=== PATIENT | female | born 1940 | race Caucasian/White ===

== ENCOUNTER 2019-08-24 17:03 | Emergency (ER) | payer MEDICARE, OTHER ==
--- NOTE | 2019-08-24 17:20 | EDM.PDOC ---
ED HPI GENERAL MEDICAL PROBLEM - General Chief Complaint: General Stated Complaint: Weakness and confusion Time Seen by Provider: 08/24/19 17:20 - History of Present Illness INITIAL COMMENTS - FREE TEXT/NARRATIVE: PT has been out walking this afternoon and became weak and nauseated, pt brought in by ems. Onset: Today - Related Data Allergies Allergy/AdvReac Type Severity Reaction Status Date / Time No Known Allergies Allergy Verified 08/24/19 17:18 Home Meds: Home Meds Aspirin 81 mg PO DAILY 08/24/19 [History] Melatonin 3 mg PO BEDTIME PRN 08/24/19 [History] ED ROS GENERAL - Review of Systems Review Of Systems: See Below Constitutional: Reports: Weakness HEENT: Reports: No Symptoms Respiratory: Reports: No Symptoms Cardiovascular: Reports: No Symptoms Endocrine: Reports: No Symptoms GI/Abdominal: Reports: Nausea : Reports: No Symptoms Musculoskeletal: Reports: No Symptoms Skin: Reports: No Symptoms Neurological: Reports: No Symptoms Psychiatric: Reports: No Symptoms Hematologic/Lymphatic: Reports: No Symptoms Immunologic: Reports: No Symptoms ED EXAM, GENERAL - Physical Exam Exam: See Below Free Text/Narrative:: Pt presents with c/o weakness and nausea, after talking with pt appeared to have some confusion. UA negative, head ct negative, uds negative, discussed with family states pt rasmussen had some confusion and more frequent episodes of in the past few months. General Appearance: Alert Eye Exam: Bilateral Eye: PERRL Ears: Normal External Exam, Normal Canal, Hearing Grossly Normal, Normal TMs Nose: Normal Inspection Throat/Mouth: Normal Inspection, Normal Oropharynx Head: Atraumatic, Normocephalic Neck: Normal Inspection Respiratory/Chest: No Respiratory Distress, Lungs Clear, Normal Breath Sounds, No Accessory Muscle Use, Chest Non-Tender Cardiovascular: Normal Peripheral Pulses, Regular Rate, Rhythm, No Edema, No Gallop, No JVD, No Murmur, No Rub GI/Abdominal: Normal Bowel Sounds, Soft, Non-Tender, No Organomegaly, No Distention, No Abnormal Bruit, No Mass, Pelvis Stable Extremities: Normal Inspection, Normal Range of Motion, Non-Tender, No Pedal Edema, Normal Capillary Refill Neurological: Alert Skin Exam: Warm, Dry, Intact Course - Vital Signs Last Recorded V/S: Last Vital Signs Temp 36.0 C 08/24/19 17:04 Pulse 74 08/24/19 18:35 Resp 16 10/25/19 18:35 BP 154/82 H 08/24/19 18:35 Pulse Ox 100 08/24/19 18:35 - Orders/Labs/Meds Labs: Laboratory Tests 08/24/19 08/24/19 08/24/19 Range/Units 15:36 17:36 17:36 WBC 6.6 (4.0-10.0) x10^3/uL RBC 4.03 (4.00-5.50) x10^6/uL Hgb 13.0 (12.0-16.0) g/dL Hct 38.1 (33.0-47.0) % MCV 94.5 H (78.0-93.0) fL MCH 32.3 H (26.0-32.0) pg MCHC 34.1 (32.0-36.0) g/dL RDW Coeff of [place] 12.2 (10.0-15.0) % Plt Count 281 (130-400) x10^3/uL Neut % (Auto) 55.6 (50.0-80.0) % Lymph % (Auto) 34.5 (25.0-50.0) % [place] % (Auto) 7.6 (2.0-11.0) % Eos % (Auto) 2.0 (0.0-4.0) % Baso % (Auto) 0.3 (0.2-1.2) % Sodium 144 (69-191) mmol/L Potassium 3.6 (1.5-9.9) mmol/L Chloride 104 (54-184) mmol/L Carbon Dioxide 23 (21-32) mmol/L Anion Gap 20.6 H (10-20) mmol/L BUN 19 H (7-18) mg/dL Creatinine 0.7 (0.55-1.02) mg/dL Est Cr Clr Drug Dosing TNP Estimated GFR (MDRD) > 60 Glucose 124 H (74-106) mg/dL Calcium 8.6 (8.5-10.1) mg/dL TSH, Ultra Sensitive 1.497 (0.358-3.74) uIU/mL Urine Color (YELLOW) Urine Appearance (CLEAR) Urine pH (5.0-8.0) Ur Specific [place] Urine Protein (NEGATIVE) mg/dL Urine Glucose (UA) (NEGATIVE) mg/dL Urine Ketones (NEGATIVE) mg/dL Urine Occult Blood (NEGATIVE) Urine Nitrite (NEGATIVE) Urine Bilirubin (NEGATIVE) Urine Urobilinogen (0.2) EU/dL Ur Leukocyte Esterase (NEGATIVE) Urine RBC (NOT SEEN) /HPF Urine WBC (NOT SEEN) /HPF Ur Squamous Epith Cells (NEGATIVE) /HPF Urine Bacteria (NEGATIVE) /HPF Urine Mucus (NEGATIVE) /LPF Urine Opiates Screen (NEGATIVE) Ur Buprenorphine Scrn (NEGATIVE) Ur Oxycodone Screen (NEGATIVE) Ur EDDP (Meth Metab) (NEGATIVE) Urine Methadone Screen (NEGATIVE) Ur Barbituates Screen (NEGATIVE) Ur Tricyclics Screen (NEGATIVE) Ur Phencyclidine Scrn (NEGATIVE) Ur Amphetamines Screen (NEGATIVE) U Methamphetamines Scrn (NEGATIVE) Urine MDMA Screen (NEGATIVE) U Benzodiazepines Scrn (NEGATIVE) Urine Cocaine Screen (NEGATIVE) U Marijuana (THC) Screen (NEGATIVE) 08/24/19 08/24/19 Range/Units 17:43 17:43 WBC (4.0-10.0) x10^3/uL RBC (4.00-5.50) x10^6/uL Hgb (12.0-16.0) g/dL Hct (33.0-47.0) % MCV (78.0-93.0) fL MCH (26.0-32.0) pg MCHC (32.0-36.0) g/dL RDW Coeff of [place] (10.0-15.0) % Plt Count (130-400) x10^3/uL Neut % (Auto) (50.0-80.0) % Lymph % (Auto) (25.0-50.0) % [place] % (Auto) (2.0-11.0) % Eos % (Auto) (0.0-4.0) % Baso % (Auto) (0.2-1.2) % Sodium (69-191) mmol/L Potassium (1.5-9.9) mmol/L Chloride (54-184) mmol/L Carbon Dioxide (21-32) mmol/L Anion Gap (10-20) mmol/L BUN (7-18) mg/dL Creatinine (0.55-1.02) mg/dL Est Cr Clr Drug Dosing Estimated GFR (MDRD) Glucose (74-106) mg/dL Calcium (8.5-10.1) mg/dL TSH, Ultra Sensitive (0.358-3.74) uIU/mL Urine Color Yellow (YELLOW) Urine Appearance Slightly cloudy H (CLEAR) Urine pH 7.5 (5.0-8.0) Ur Specific [place] 1.015 Urine Protein Negative (NEGATIVE) mg/dL Urine Glucose (UA) Negative (NEGATIVE) mg/dL Urine Ketones Trace H (NEGATIVE) mg/dL Urine Occult Blood Trace-intact H (NEGATIVE) Urine Nitrite Negative (NEGATIVE) Urine Bilirubin Negative (NEGATIVE) Urine Urobilinogen 0.2 (0.2) EU/dL Ur Leukocyte Esterase Negative (NEGATIVE) Urine RBC 0-5 (NOT SEEN) /HPF Urine WBC Not seen (NOT SEEN) /HPF Ur Squamous Epith Cells Rare (NEGATIVE) /HPF Urine Bacteria Rare (NEGATIVE) /HPF Urine Mucus Not seen (NEGATIVE) /LPF Urine Opiates Screen Negative (NEGATIVE) Ur Buprenorphine Scrn Negative (NEGATIVE) Ur Oxycodone Screen Negative (NEGATIVE) Ur EDDP (Meth Metab) Negative (NEGATIVE) Urine Methadone Screen Negative (NEGATIVE) Ur Barbituates Screen Negative (NEGATIVE) Ur Tricyclics Screen Negative (NEGATIVE) Ur Phencyclidine Scrn Negative (NEGATIVE) Ur Amphetamines Screen Negative (NEGATIVE) U Methamphetamines Scrn Negative (NEGATIVE) Urine MDMA Screen Negative (NEGATIVE) U Benzodiazepines Scrn Negative (NEGATIVE) Urine Cocaine Screen Negative (NEGATIVE) U Marijuana (THC) Screen Negative (NEGATIVE) Meds: Medications Discontinued Medications Generic Name Dose Route Start Last Admin Trade Name Freq PRN Reason Stop Dose Admin Lactated Ringer's 1,000 mls @ 999 drops/min 08/24/19 17:26 08/24/19 17:31 Ringers, Lactated IV 08/24/19 17:41 999 drops/min ONETIME ONE Administration Departure - Departure Time of Disposition: 19:37 Disposition: Home, Self-Care 01 Clinical Impression: Confusion - Discharge Information Forms: ED Department Discharge Additional Instructions: Follow up with pcp for further evaluation return to er as needed
[2019-08-24] MEDS: Lactated Ringers 1,000 ML IV ONE (17:31)
[2019-08-24 17:57] LABS: BUPRENORPHINE,URINE NEGATIVE (NEGATIVE); MARIJUANA,URINE NEGATIVE (NEGATIVE); METHYLENEDIOXYMETHAMP,UR NEGATIVE (NEGATIVE); PHENCYCLIDINE,URINE NEGATIVE (NEGATIVE)
[2019-08-24 17:57] LABS: CHLORIDE,CL 104 mmol/L (54-184); SODIUM,NA 144 mmol/L (69-191)
[2019-08-24 17:59] LABS: ANION GAP 20.6 mmol/L (10-20)
--- NOTE | 2019-08-24 18:49 | CT ---
[id number] CT/CT Head WO IV EXAM: CT Head WO IV CLINICAL DATA: ACUTE CONFUSION. COMPARISON STUDY: None FINDINGS: No intracranial hemorrhage, extra-axial fluid collection, mass, or acute ischemia. Generalized parenchymal atrophy with scattered areas of nonspecific white matter disease, commonly seen as sequela of chronic microvascular ischemia. Soft tissues are unremarkable. Paranasal sinuses and mastoid air cells are clear. IMPRESSION: No acute intracranial findings. Bang Novak DO 08/24/19 1847 Thank you for allowing us to participate in the care of your patient.
== END 2019-08-24 19:40 | disposition home or self-care (01) ==
LOC: VM.ED 17:03
DX: R41.0 Disorientation, unspecified (principal); R53.1 Weakness; R11.0 Nausea; Z79.82 Long term (current) use of aspirin
CPT/HCPCS: 36415; 70450; 80048; 80305; 81001; 84443; 85025; 96360; 99285; J7120

== ENCOUNTER 2025-09-09 07:47 | Day surgery (SDC) | payer MEDICARE, MEDICAID, OTHER ==
[~2025-09-09 07:47] MED LIST: Dexamethasone/Neomycin/Polymyxin B Ophth Oint 3.5 GM Tube ONE; Lidocaine 1% 2 ML ONE; Midazolam 1 MG/ML 2 ML SDV ONE; Phenyleprhine/Ketorolac 4 ML Vial ONE; Povidone-Iodine 5% Sterile Ophth Soln 30 ML Bottle ONE; fentaNYL 100 MCG/2 ML SDV ONE
[2025-09-09] MEDS: Cyclopentolate 1% Opth Soln 2 ML Bottle EYELF SCH (07:55)
[2025-09-09] MEDS: Moxifloxacin 0.5% Ophth Soln 3 ML Bottle EYELF ONE ×2 (08:15→09:21)
[2025-09-09] MEDS: Povidone-Iodine 5% Sterile Ophth Soln 30 ML Bottle EYELF ONE (09:21)
[2025-09-09] MEDS: Lidocaine 1% PF 2 ML SDV INFILT ONE (09:22)
[2025-09-09] MEDS: Phenyleprhine/Ketorolac 4 ML Vial IOCULAR ONE (09:22)
[2025-09-09] MEDS: Balanced Salt Solution Ophth Irrig 500 ML Bottle IOCULAR ONE (09:22)
[2025-09-09] MEDS: Dexamethasone/Neomycin/Polymyxin B Ophth Oint 3.5 GM Tube EYELF ONE (09:23)
[2025-09-09] MEDS: Chondroitin Sulfate/Hyaluronate Sodium Ophth Inj 0.5 ML Syringe IOCULAR ONE (09:23)
[2025-09-09] MEDS: acetaZOLAMIDE 500 MG Cap.ER PO ONE (09:46)
== END 2025-09-09 10:20 | disposition home or self-care (01) ==
LOC: VM.SDS 07:47
PROVIDERS: ATTEND Ophthalmology
DX: H25.813 Combined forms of age-related cataract, bilateral (principal); E78.2 Mixed hyperlipidemia; Z79.82 Long term (current) use of aspirin; Z79.899 Other long term (current) drug therapy
CPT/HCPCS: 66984; A9270; J0690; J1097; J2003; J2250; J3010; 00142; 99100; J3490; V2632